=== PATIENT | female | born 1960 | race Caucasian/White ===

== ENCOUNTER 2022-12-01 14:25 | Emergency (ER) | payer OTHER ==
[2022-12-01 15:31] LABS: Absolute Lymphocytes (CBC) 1.3 K/uL (0.7-4.9); Hematocrit 43.6 % (36.0-45.0); Lymphocytes % 7.9 % (15.3-44.8); MCV 91.4 fL (80-100); MPV 8.6 fL (7.6-11.3); RBC Red Blood Cell Count 4.77 M/uL (3.86-4.86)
[2022-12-01] MEDS ORDERED: NA CHLORIDE 0.9% 1,000 ML ONE (15:37)
[2022-12-01] MEDS ORDERED: FAMOTIDINE 20 MG/2 ML VIAL IV ONE (15:37)
[2022-12-01] MEDS ORDERED: MORPHINE 4 MG/ML SYR ONE (15:37)
[2022-12-01] MEDS ORDERED: ONDANSETRON 4 MG/2 ML VIAL ONE (15:37)
[2022-12-01 15:53] LABS: Albumin 4.6 g/dL (3.4-5.0); Protein, Total 8.6 g/dL (6.4-8.2)
--- NOTE | 2022-12-01 16:59 | RAD REPORT ---
EXAM DESCRIPTION: CT - Abdomen Pelvis W Contrast - 12/01/2022 4:25 pm CLINICAL HISTORY: ABD PAIN COMPARISON: No comparisons TECHNIQUE: Thin cut axial CT imaging of the abdomen and pelvis was performed following intravenous a dministration of 100 mL Isovue 300. Multiplanar reformats were generated and reviewed. All CT scans are performed using dose optimization technique as appropriate and may include automated exposure control or mA/KV adjustment according to patient size. FINDINGS: No suspicious findings in the lung bases. The liver, spleen, and pancreas show no suspicious findings. Gallbladder and biliary tree are also wi thout suspicious finding. Symmetric renal function is seen with no hydronephrosis or suspicious renal mass. No dilated bowel loops or bowel wall thickening. No free air, free fluid or inflammatory stranding. N o hernia, mass or bulky lymphadenopathy. Colonic diverticulosis. The urinary bladder is without signi ficant finding. Uterus is retroverted, with multiple calcified fibroids, resulting in contour abnormality. No suspicious bony findings. IMPRESSION: No acute intra-abdominal process. Incidental findings as above.
--- NOTE | 2022-12-01 17:29 | EDPHYS ---
Physician Documentation [facility] Name: Layla Hernandez Age: 62 yrs Sex: Female : 1960 Arrival Date: 12/01/2022 Time: 14:25 Bed 6 Private MD: ED Physician Scooter Briggs HPI: 12/01 14:47 This 62 yrs old Female presents to ER via Ambulatory with complaints of ms3 Nausea/Vomiting/Diarrhea. 14:47 62-year-old female with past medical history of hyperlipidemia presents for abdominal ms3 pain, nausea, vomiting that is been ongoing for 48 hours. Patient states she is having generalized abdominal pain she rates 7/10 described as cramping/pressure. Patient endorses diarrhea. Patient denies fever. Patient denies alleviating or inciting factors.. Historical: - Allergies: 14:33 No Known Allergies; ap3 - Home Meds: 14:33 Simvastatin Oral [Active]; Trazodone Oral as needed for insomnia associated with ap3 depression [Active]; - PMHx: 14:33 Hypercholesterolemia; ap3 - Immunization history:: Client reports receiving the 2nd dose of the Covid vaccine. - Social history:: Smoking status: Reported history of juuling and/or vaping. ROS: 14:47 Constitutional: Negative for fever, and chills. Neck: Negative for injury, pain, and ms3 swelling, Cardiovascular: Negative for chest pain, and palpitations. Respiratory: Negative for shortness of breath, cough, wheezing, and pleuritic chest pain. 14:47 Skin: Negative for injury, rash, and discoloration. 14:47 Abdomen/GI: Positive for abdominal pain, nausea and vomiting. 14:47 All other systems are negative. Exam: 14:47 Constitutional: This is a well developed, well nourished patient who is awake, alert, ms3 and in no acute distress. Head/Face: Normocephalic, atraumatic. Neck: Trachea midline, no cervical lymphadenopathy. Supple, full range of motion without nuchal rigidity, or vertebral point tenderness. No Meningismus. Chest/axilla: Normal chest wall appearance and motion. Nontender with no deformity. Cardiovascular: Regular rate and rhythm with a normal S1 and S2. No gallops, murmurs, or rubs. Normal PMI, no JVD. No pulse deficits. Respiratory: Lungs have equal breath sounds bilaterally, clear to auscultation and percussion. No rales, rhonchi or wheezes noted. No increased work of breathing, no retractions or nasal flaring. 14:47 Abdomen/GI: Inspection: abdomen appears normal, Bowel sounds: diminished, in all quadrants, Palpation: moderate abdominal tenderness, in all quadrants. Vital Signs: 14:31 Pulse 80; Resp 19; Temp 97.7; Pulse Ox 99% ; Weight 70.31 kg; Height 5 ft. 2 in. ; Pain ap3 7/10; 14:35 BP 187 / 93; ap3 15:30 BP 175 / 91; Pulse 70; Resp 22 S; Pulse Ox 98% on R/A; aa5 17:04 BP 130 / 77; Pulse 65; Resp 16 S; Pulse Ox 96% on R/A; Pain 1/10; aa5 14:31 Body Mass Index 28.35 (70.31 kg, 157.48 cm) ap3 14:31 Pain Scale: Adult ap3 17:04 Pain Scale: Adult aa5 MDM: 14:46 Patient medically screened. ms3 14:47 Differential diagnosis: Nonspecific abd pain, viral gastroenteritis, Bowel obstruction. ms3 17:30 Data reviewed: vital signs, nurses notes, lab test result(s), radiologic studies, and ms3 as a result, I will discharge patient. I considered the following discharge prescriptions or medication management in the emergency department Medications were administered in the Emergency Department. See MAR. Independent interpretation of the following test(s) in the Emergency Department CT Scan: My interpretation is CT images reviewed by me do not reveal bowel obstruction. Historians other than the Patient:. Counseling: I had a detailed discussion with the patient and/or guardian regarding: the historical points, exam findings, and any diagnostic results supporting the discharge/admit diagnosis, lab results, radiology results, the need for outpatient follow up, to return to the emergency department if symptoms worsen or persist or if there are any questions or concerns that arise at home. Response to treatment: the patient's symptoms have markedly improved after treatment, and as a result, I will discharge patient. Special discussion: Based on the patient's Hx, exam, and Dx evaluation, there is no indication for emergent surgery or inpatient Tx. It is understood by the patient/guardian that if the Sx's persist or worsen they need to return immediately for re-evaluation. 12/01 14:47 Order name: CBC with Diff; Complete Time: 16:05 ms3 12/01 14:47 Order name: CMP; Complete Time: 16:05 ms3 12/01 14:47 Order name: Lipase; Complete Time: 16:05 ms3 12/01 14:47 Order name: CT Abd/Pelvis - IV Contrast Only; Complete Time: 17:05 ms3 12/01 14:47 Order name: IV Saline Lock; Complete Time: 15:39 ms3 12/01 14:47 Order name: Labs collected and sent; Complete Time: 15:39 ms3 Administered Medications: 15:28 Drug: NS 0.9% IV 1000 ml Route: IV; Rate: 1 bolus; Site: right antecubital; aa5 15:28 Drug: Ondansetron IVP 4 mg Route: IVP; Site: right antecubital; aa5 15:50 Follow up: Response: No adverse reaction aa5 15:30 Drug: Famotidine IVP 20 mg Route: IVP; Site: right antecubital; aa5 15:50 Follow up: Response: No adverse reaction aa5 15:30 Drug: morphine IVP or IV 4 mg Route: IVP; Infused Over: 4 mins; Site: right antecubital;aa5 15:50 Follow up: Response: No adverse reaction; Marked relief of symptoms aa5 Disposition Summary: 12/01/22 17:27 Discharge Ordered Location: Home ms3 Condition: Stable ms3 Diagnosis - Abdominal pain, Generalized ms3 - Nausea with vomiting, unspecified ms3 Followup: ms3 - With: - When: 2 - 3 days - Reason: Recheck today's complaints Discharge Instructions: - Discharge Summary Sheet ms3 - Abdominal Pain, Adult ms3 - Nausea and Vomiting, Adult ms3 Forms: - Medication Reconciliation Form ms3 - Thank You Letter ms3 - Antibiotic Education ms3 - Prescription Opioid Use ms3 - Patient Portal Instructions.htm ms3 Prescriptions: - dicyclomine 10 mg Oral capsule - take 1 capsule by ORAL route 4 times per day as needed for abdominal pain; 20 ms3 capsule; Refills: 0, Product Selection Permitted - ondansetron 4 mg Oral Tablet,disintegrating - take 1 tablet by ORAL route every 8 hours for 3 days; 15 tablet; Refills: 0, ms3 Product Selection Permitted - Flagyl 500 mg Oral Tablet - take 1 tablet by ORAL route every 12 hours for 7 days; 14 tablet; Refills: 0, ms3 Product Selection Permitted - Cipro 500 mg Oral Tablet - take 1 tablet by ORAL route every 12 hours for 7 days; 14 tablet; Refills: 0, ms3 Product Selection Permitted Signatures: Dispatcher [employer] Mara Barakat RN RN aa5 Emily Álvarez RN RN ap3 Scooter Briggs DO DO ms3 Corrections: (The following items were deleted from the chart) 17:31 16:53 Transition of care: After a detail discussion of the patient's case, care is ms3 transferred to Eros Stroud MD ms3
--- NOTE | 2022-12-01 17:29 | ER ---
Nurse's Notes [facility] Name: Layla Hernandez Age: 62 yrs Sex: Female : 1960 Arrival Date: 12/01/2022 Time: 14:25 Bed 6 Private MD: Diagnosis: Abdominal pain, Generalized;Nausea with vomiting, unspecified Presentation: 12/01 14:31 Chief complaint: Patient states: she has been having nausea and vomiting with abdominal ap3 cramping for approx 48 hours. Coronavirus screen: At this time, the client does not indicate any symptoms associated with coronavirus-19. Ebola Screen: No symptoms or risks identified at this time. Initial Sepsis Screen: Does the patient meet any 2 criteria? No. Patient's initial sepsis screen is negative. Does the patient have a suspected source of infection? No. Patient's initial sepsis screen is negative. Risk Assessment: Do you want to hurt yourself or someone else? Patient reports no desire to harm self or others. Onset of symptoms was November 29, 2022. 14:31 Method Of Arrival: Ambulatory ap3 14:31 Acuity: KAPIL 3 ap3 Triage Assessment: 14:34 General: Appears uncomfortable, Behavior is calm, cooperative, appropriate for age. ap3 Pain: Complains of pain in abdomen Quality of pain is described as crampy, Pain began 2-3 days ago. Neuro: Level of Consciousness is awake, alert, obeys commands, Oriented to person, place, time, situation. Cardiovascular: Patient's skin is warm and dry. Respiratory: Airway is patent Respiratory effort is even, unlabored, Respiratory pattern is regular, symmetrical. GI: Reports nausea, vomiting. Historical: - Allergies: 14:33 No Known Allergies; ap3 - Home Meds: 14:33 Simvastatin Oral [Active]; Trazodone Oral as needed for insomnia associated with ap3 depression [Active]; - PMHx: 14:33 Hypercholesterolemia; ap3 - Immunization history:: Client reports receiving the 2nd dose of the Covid vaccine. - Social history:: Smoking status: Reported history of juuling and/or vaping. Screenin:[facility] ED Fall Risk Assessment (Adult) History of falling in the last 3 months, ap3 including since admission No falls in past 3 months (0 pts). Abuse screen: Denies threats or abuse. Nutritional screening: No deficits noted. Tuberculosis screening: No symptoms or risk factors identified. Assessment: 15:20 General: Appears uncomfortable, Behavior is calm, cooperative. Pain: Complains of pain aa5 in right lower quadrant and left lower quadrant Pain currently is 8 out of 10 on a pain scale. Quality of pain is described as crampy, sharp, Pain began 2-3 days ago. Is continuous. Neuro: Level of Consciousness is awake, alert, obeys commands, Oriented to person, place, time, situation. Cardiovascular: Heart tones S1 S2 present Rhythm is regular. Respiratory: Airway is patent Respiratory effort is even, unlabored, Respiratory pattern is regular, symmetrical. GI: Abdomen is round non-distended, Bowel sounds present X 4 quads. Abdomen is tender to palpation in right lower quadrant and left lower quadrant Reports diarrhea, nausea, vomiting. : No signs and/or symptoms were reported regarding the genitourinary system. EENT: No signs and/or symptoms were reported regarding the EENT system. Derm: Skin is pink, warm \T\ dry. Musculoskeletal: Range of motion: intact in all extremities. 15:50 Reassessment: Patient is alert, oriented x 3, equal unlabored respirations, skin aa5 warm/dry/pink. Patient states feeling better. Patient states symptoms have improved. Pain: Pain currently is 5 out of 10 on a pain scale. 16:18 Reassessment: Pt to CT via wheelchair . aa5 17:03 Reassessment: Patient is alert, oriented x 3, equal unlabored respirations, skin aa5 warm/dry/pink. Patient states feeling better. Patient states symptoms have improved. Pain: Pain currently is 1 out of 10 on a pain scale. Vital Signs: 14:31 Pulse 80; Resp 19; Temp 97.7; Pulse Ox 99% ; Weight 70.31 kg; Height 5 ft. 2 in. ; Pain ap3 7/10; 14:35 BP 187 / 93; ap3 15:30 BP 175 / 91; Pulse 70; Resp 22 S; Pulse Ox 98% on R/A; aa5 17:04 BP 130 / 77; Pulse 65; Resp 16 S; Pulse Ox 96% on R/A; Pain 1/10; aa5 14:31 Body Mass Index 28.35 (70.31 kg, 157.48 cm) ap3 14:31 Pain Scale: Adult ap3 17:04 Pain Scale: Adult aa5 ED Course: 14:27 Patient arrived in ED. im 14:31 Scooter Briggs DO is Attending Physician. ms3 14:33 Triage completed. ap3 14:35 Arm band placed on right wrist. ap3 15:06 Mara Brooks, RN is Primary Nurse. aa5 15:20 Patient has correct armband on for positive identification. Bed in low position. Call aa5 light in reach. Side rails up X2. Adult w/ patient. 15:25 Initial lab(s) drawn, by me, sent to lab. Inserted saline lock: 20 gauge in right aa5 antecubital area, using aseptic technique. Blood collected. 16:27 CT Abd/Pelvis - IV Contrast Only In Process Unspecified. EDMS 16:54 Attending Physician role handed off by Scooter Briggs DO ms3 16:54 Eros Stroud MD is Attending Physician. ms3 17:27 Scooter Briggs DO is Attending Physician. ms3 17:27 Chau Lara DO is Referral Physician. ms3 17:52 No provider procedures requiring assistance completed. IV discontinued, intact, kc6 bleeding controlled, No redness/swelling at site. Pressure dressing applied. Administered Medications: 15:28 Drug: NS 0.9% IV 1000 ml Route: IV; Rate: 1 bolus; Site: right antecubital; aa5 15:28 Drug: Ondansetron IVP 4 mg Route: IVP; Site: right antecubital; aa5 15:50 Follow up: Response: No adverse reaction aa5 15:30 Drug: Famotidine IVP 20 mg Route: IVP; Site: right antecubital; aa5 15:50 Follow up: Response: No adverse reaction aa5 15:30 Drug: morphine IVP or IV 4 mg Route: IVP; Infused Over: 4 mins; Site: right antecubital;aa5 15:50 Follow up: Response: No adverse reaction; Marked relief of symptoms aa5 Medication: 15:41 VIS not applicable for this client. aa5 Outcome: 17:27 Discharge ordered by . ms3 17:52 Discharged to home ambulatory, with family. kc6 17:52 Condition: improved 17:52 Discharge instructions given to patient, Instructed on discharge instructions, follow up and referral plans. medication usage, Demonstrated understanding of instructions, follow-up care, medications, Prescriptions given X 4. 17:52 Patient left the ED. kc6 Signatures: Dispatcher [employer] EDMara Pichardo, RN RN aa5 Emily Álvarez RN RN ap3 Scooter Briggs DO DO ms3 Kim Santa RN RN kc6 Rashmi Maya Corrections: (The following items were deleted from the chart) 15:50 15:20 Pain: Complains of pain in right lower quadrant and left lower quadrant Pain aa5 currently is 10 out of 10 on a pain scale. Quality of pain is described as crampy, sharp, Pain began 2-3 days ago. Is continuous, aa5
[2022-12-01 19:51] VITALS: TEMP 97.7
[2022-12-01 19:54] VITALS: BP 130/77; O2SAT 96
== END 2022-12-01 17:52 | disposition home or self-care (01) ==
LOC: ER 14:25
DX: R10.84 Generalized abdominal pain (principal); R11.2 Nausea with vomiting, unspecified; E78.00 Pure hypercholesterolemia, unspecified
CPT/HCPCS: 85025; 36415; 83690; 80053; 74177; 96375; 96374; 99284; Q9967; J2405; J7030